=== PATIENT | female | born 1965 | race Two or more races ===

== ENCOUNTER 2017-09-03 18:17 | Emergency (ER) | payer MEDICAID ==
[~2017-09-03] VITALS: Ht 167.6 cm; Wt 104.3 kg
[2017-09-03 18:26] VITALS: Ht 167.6 cm; Wt 104.3 kg
[2017-09-03 20:57] VITALS: BP 147/84
== END 2017-09-03 20:57 | disposition home or self-care (01) ==
LOC: ED 18:17
DX: S39.012A Strain of muscle, fascia and tendon of lower back, initial encounter (principal); I10 Essential (primary) hypertension; X58.XXXA Exposure to other specified factors, initial encounter; Y93.89 Activity, other specified; Y92.89 Other specified places as the place of occurrence of the external cause; Y99.8 Other external cause status
CPT/HCPCS: J1885